=== PATIENT | female | born 1975 | race Caucasian/White ===

== ENCOUNTER → 2023-07-27 15:56 | Outpatient (REF) | payer BC, SELFPAY | LOC: HWWDC 15:56 | PROVIDERS: ATTENDING PHYSICIAN Nurse Practitioner Adult Health | DX: Z12.31 Encounter for screening mammogram for malignant neoplasm of breast (principal) | CPT/HCPCS: 77063; 77067 ==

== ENCOUNTER → 2024-06-23 11:00 | Outpatient (REF) | payer BC, SELFPAY | LOC: CLAB 11:00 | PROVIDERS: ATTENDING PHYSICIAN Specialist | DX: N62 Hypertrophy of breast (principal) | CPT/HCPCS: 88305 ==